=== PATIENT | male | born 1955 | race Caucasian/White ===

== ENCOUNTER 2017-04-26 08:56 | Emergency (ER) | payer MEDICARE, OTHER ==
[~2017-04-26] VITALS: Ht 180.3 cm; Wt 86.4 kg
[~2017-04-26 08:56] MED LIST: LEDI1TAB PO; LORA1TAB3 PO; METH40TA; MORP30TA11 PO
[2017-04-26] MEDS ORDERED: FLUT1BLS IH (09:07)
[2017-04-26] MEDS ORDERED: LACT30L PO (09:07)
[2017-04-26] MEDS ORDERED: TRAZ-144 PO (09:07)
[2017-04-26] MEDS ORDERED: IPRATROPIUM BROMIDE 0.5 MG/2.5 ML NEB SOLUTION NEB ONE ×2 (09:30→13:30)
[2017-04-26] MEDS ORDERED: ALBUTEROL SULFATE 2.5 MG/0.5 ML NEB SOLUTION NEB ONE ×2 (09:30→13:05)
[2017-04-26 10:56] LABS: ANION GAP 7 mmol/L (8-16); CALCIUM, TOTAL 8.5 mg/dL (8.8-10.5); CARBON DIOXIDE 29 mmol/L (22-29); CHLORIDE 102 mmol/L (98-107); CREATININE 0.86 mg/dL (0.60-1.30); GLOMERULAR FILTR. RATE CALC > 60 mL/min (>60); POTASSIUM 4.3 mmol/L (3.5-5.1); SODIUM SERUM 138 mmol/L (136-145); UREA NITROGEN, BLOOD 8 mg/dL (7-18)
[2017-04-26 10:57] LABS: BASOPHILS % (AUTO) 0.1 % (0.0-2.0); EOSINOPHILS % (AUTO) 0.3 % (1.0-6.0); HEMOGLOBIN 14.8 g/dL (13.5-17.5); LYMPHOCYTES # (AUTO) 0.5 K/uL (1.0-4.8); LYMPHOCYTES % (AUTO) 6.5 % (22.0-44.0); MEAN CORPUSCULAR HGB CONC 33.8 G/dL (31.0-37.0); MEAN CORPUSCULAR VOLUME 95 fL (80-100); MONOCYTES # (AUTO) 0.5 K/uL (0.1-1.0); MONOCYTES % (AUTO) 6.7 % (2.0-9.0); NEUTROPHILS # (AUTO) 6.6 K/uL (1.8-7.7); PLATELET COUNT (AUTO) 43 K/uL (150-450); RED BLOOD CELL COUNT(AUTO) 4.63 MIL/uL (4.50-5.90); WHITE BLOOD COUNT (AUTO) 7.7 K/uL (4.5-11.0)
[2017-04-26 11:02] LABS: ALANINE AMINOTRANSFERASE 30 U/L (12-78); ALBUMIN 3.4 g/dL (3.4-5.0); ASPARTATE AMINOTRANSFERASE 33 U/L (15-37); BILIRUBIN,TOTAL 1.9 mg/dL (0.1-1.0); CREATINE KINASE, TOTAL 44 U/L (39-308); NEUTROPHILS % (AUTO) 86.4 % (40.0-70.0); TOTAL PROTEIN, SERUM 6.9 g/dL (6.4-8.2)
[2017-04-26 11:21] LABS: B-TYPE NATRIURETIC PEPTIDE 66 pg/mL (0-100)
[2017-04-26] MEDS ORDERED: MethylPREDNISolone SOD SUCC 125 MG/2 ML VIAL IVP ONE (11:45)
[2017-04-26 12:14] LABS: INFLUENZA TYPE B NEGATIVE FOR TYPE B (NEGATIVE)
[2017-04-26] MEDS ORDERED: LEVOFLOXACIN 500 MG/D5% WATER 100 ML IV ONE (13:15)
[2017-04-26 14:43] VITALS: BP 105/60
== END 2017-04-26 14:46 | disposition home or self-care (01) ==
LOC: EMS 08:59
DX: J44.9 Chronic obstructive pulmonary disease, unspecified (principal); F17.210 Nicotine dependence, cigarettes, uncomplicated
CPT/HCPCS: 36415; 71010; 80053; 82550; 83880; 84484; 85025; 87804; 93005; 94060; 94640; 96374; 96375; 99285; J1956; J2930

== ENCOUNTER 2020-11-06 14:18 | Emergency (ER) | payer OTHER ==
[~2020-11-06] VITALS: Ht 180.3 cm; Wt 81.8 kg
[~2020-11-06 14:18] MED LIST changes: +FLUT1BLS IH; +LACT30L PO; -LEDI1TAB PO; +LORA-1000 PO; -LORA1TAB3 PO; -MORP30TA11 PO; +TRAZ-252 PO
[2020-11-06] MEDS ORDERED: HYDROCODONE/ACETAMINOPHEN 5-325 MG TABLET PO ONE (15:45)
[2020-11-06] MEDS ORDERED: OxyCODONE HCL 5 MG IR TABLET PO ONE (16:00)
[2020-11-06 17:51] VITALS: BP 105/71
== END 2020-11-06 19:31 | disposition home or self-care (01) ==
LOC: EMS 15:31
DX: S22.31XA Fracture of one rib, right side, initial encounter for closed fracture (principal); W01.0XXA Fall on same level from slipping, tripping and stumbling without subsequent striking against object, initial encounter; Y93.89 Activity, other specified; Y92.89 Other specified places as the place of occurrence of the external cause; Y99.8 Other external cause status
CPT/HCPCS: 71101; 99283

== ENCOUNTER 2020-12-29 11:33 | Emergency (ER) | payer OTHER ==
[~2020-12-29] VITALS: Ht 172.7 cm; Wt 84.1 kg
[2020-12-29 13:25] LABS: BASOPHILS % (AUTO) 0.4 % (0.0-2.0); EOSINOPHILS % (AUTO) 1.2 % (1.0-6.0); HEMATOCRIT 45.6 % (41-53); HEMOGLOBIN 15.1 g/dL (13.5-17.5); LYMPHOCYTES # (AUTO) 0.4 K/uL (1.0-4.8); LYMPHOCYTES % (AUTO) 10.4 % (22.0-44.0); MEAN CORPUSCULAR HEMOGLOBIN 32.6 pg (26.0-34.0); MEAN CORPUSCULAR HGB CONC 33.1 G/dL (31.0-37.0); MEAN CORPUSCULAR VOLUME 98 fL (80-100); MONOCYTES # (AUTO) 0.3 K/uL (0.1-1.0); MONOCYTES % (AUTO) 8.6 % (2.0-9.0); NEUTROPHILS # (AUTO) 2.8 K/uL (1.8-7.7); NEUTROPHILS % (AUTO) 79.4 % (40.0-70.0); RED BLOOD CELL COUNT(AUTO) 4.63 MIL/uL (4.50-5.90); RED CELL DISTRIBUTION WIDTH 16.7 % (11.5-14.5)
[2020-12-29 13:40] LABS: ANION GAP 5 mmol/L (8-16); CALCIUM, TOTAL 8.7 mg/dL (8.8-10.5); CARBON DIOXIDE 32 mmol/L (22-29); CHLORIDE 102 mmol/L (98-107); CREATININE 0.78 mg/dL (0.60-1.30); GLOMERULAR FILTR. RATE CALC > 60 mL/min (>60); GLUCOSE,RANDOM 87 mg/dL (70-110); POTASSIUM 3.9 mmol/L (3.5-5.1); SODIUM SERUM 139 mmol/L (136-145); UREA NITROGEN, BLOOD 9 mg/dL (7-18)
[2020-12-29 13:46] LABS: ALANINE AMINOTRANSFERASE 42 U/L (12-78); ALBUMIN 3.2 g/dL (3.4-5.0); ALKALINE PHOSPHATASE 197 U/L (46-116); ASPARTATE AMINOTRANSFERASE 86 U/L (15-37); BILIRUBIN,TOTAL 3.3 mg/dL (0.1-1.0); LIPASE 74 U/L (73-393); TOTAL PROTEIN, SERUM 7.8 g/dL (6.4-8.2)
[2020-12-29 13:48] LABS: LACTIC ACID 1.8 mmol/L (0.4-2.0)
[2020-12-29 13:56] LABS: PLATELET COUNT (AUTO) 40 K/uL (150-450)
[2020-12-29 14:24] LABS: INR 1.3 (0.9-1.1); PROTHROMBIN TIME 13.9 SEC (9.4-11.6)
[2020-12-29] MEDS ORDERED: SODIUM CHLORIDE 0.9% 100 ML ONE (14:58)
[2020-12-29] MEDS ORDERED: IOHEXOL 350 MG/ML 100 ML VIAL ONE (14:58)
[2020-12-29 15:07] LABS: COVID AG,FIA SOURCE NASOPHARYNGEAL
[2020-12-29] MEDS ORDERED: FUROSEMIDE 40 MG/4 ML VIAL IVP ONE (15:15)
[2020-12-29 16:42] VITALS: BP 106/19
[2020-12-29 17:27] LABS: APPEARANCE,URINE CLEAR (CLEAR); BILIRUBIN,URINE NEGATIVE (NEGATIVE); GLUCOSE, URINE (UA) NEGATIVE (NEGATIVE); KETONES,URINE NEGATIVE (NEGATIVE); LEUKOCYTE ESTERASE ,URINE NEGATIVE (NEGATIVE); NITRATE,URINE NEGATIVE (NEGATIVE); OCCULT BLOOD,URINE NEGATIVE (NEGATIVE); PROTEIN,URINE NEGATIVE (NEGATIVE)
== END 2020-12-29 16:53 | disposition home or self-care (01) ==
LOC: EMS 11:33
DX: K74.60 Unspecified cirrhosis of liver (principal); R18.8 Other ascites; J44.9 Chronic obstructive pulmonary disease, unspecified; I50.9 Heart failure, unspecified; F20.9 Schizophrenia, unspecified; F41.9 Anxiety disorder, unspecified; F17.210 Nicotine dependence, cigarettes, uncomplicated; Z20.822 Contact with and (suspected) exposure to COVID-19
CPT/HCPCS: 36415; 49083; 71045; 74177; 76700; 76942; 80053; 81003; 83605; 83690; 83880; 85025; 85610; 85730; 87040; 87426; 93005; 96374; 99285; A9575; J1940; J7050; U0003; Q9967